=== PATIENT | male | born 1950 | race Caucasian/White ===

== ENCOUNTER 2016-11-01 12:04 | Emergency (ER) | payer MEDICARE, OTHER ==
[2016-11-01 12:17] VITALS: RESP 20
[2016-11-01] MEDS ORDERED: MORPHINE SULFATE 4 MG/ML SYRINGE IV STA (14:23)
[2016-11-01] MEDS ORDERED: SODIUM CHLORIDE 0.9% 500 ML IV STA (14:23)
[2016-11-01] MEDS ORDERED: SODIUM CHLORIDE 0.9% 1,000 ML IV STA ×2 (14:23)
--- NOTE | 2016-11-01 14:33 | ED ---
General Adult HPI - General Chief complaint: Abdominal Pain Stated complaint: Poss kidney stones Time Seen by Provider: 11/01/16 14:06 Source: patient, RN notes reviewed, old records reviewed Mode of arrival: ambulatory Limitations: no limitations - History of Present Illness Initial comments: This is a 66-year-old male ER for evaluation. The patient presents TF reversal without pain, severe abdominal pain left flank rating to groin, 10 days with the pain. Patient has history of kidney stones. Patient states pain is just like prior kidney stone. No blood in his urine, no fevers or nausea vomiting. No other complaints - Related Data Home Medications Medication Instructions Recorded Confirmed Insulin Aspart [NovoLOG] 5 unit SQ AC-TID 12/08/15 11/01/16 Insulin Glargine [Lantus] 70 unit SQ BID 12/08/15 11/01/16 metFORMIN HCL [Glucophage] 1,000 mg PO BID 12/08/15 11/01/16 Aspirin 81 mg PO DAILY 11/01/16 11/01/16 Crestor (Unknown Dose) 0.5 tab PO MOWEFR 11/01/16 11/01/16 Allergies Allergy/AdvReac Type Severity Reaction Status Date / Time simvastatin AdvReac JOINT PAIN Verified 11/01/16 14:20 Review of Systems ROS Statement: Those systems with pertinent positive or pertinent negative responses have been documented in the HPI. ROS Other: All systems not noted in ROS Statement are negative. Past Medical History Past Medical History: COPD, Diabetes Mellitus Additional Past Medical History / Comment(s): kidney stones History of Any Multi-Drug Resistant Organisms: None Reported Additional Past Surgical History / Comment(s): aortic valve Past Psychological History: No Psychological Hx Reported Smoking Status: Former smoker Past Alcohol Use History: None Reported Past Drug Use History: None Reported General Exam Limitations: no limitations General appearance: alert, in no apparent distress Head exam: Present: atraumatic, normocephalic, normal inspection Eye exam: Present: normal appearance, PERRL, EOMI. Absent: scleral icterus, conjunctival injection, periorbital swelling ENT exam: Present: normal exam, mucous membranes moist Neck exam: Present: normal inspection. Absent: tenderness, meningismus, lymphadenopathy Respiratory exam: Present: normal lung sounds bilaterally. Absent: respiratory distress, wheezes, rales, rhonchi, stridor Cardiovascular Exam: Present: regular rate, normal rhythm, normal heart sounds. Absent: systolic murmur, diastolic murmur, rubs, gallop, clicks GI/Abdominal exam: Present: soft, normal bowel sounds. Absent: distended, tenderness, guarding, rebound, rigid Extremities exam: Present: normal inspection, full ROM, normal capillary refill. Absent: tenderness, pedal edema, joint swelling, calf tenderness Back exam: Present: normal inspection Neurological exam: Present: alert, oriented X3, CN II-XII intact Psychiatric exam: Present: normal affect, normal mood Skin exam: Present: warm, dry, intact, normal color. Absent: rash Course Vital Signs 11/01/16 12:15 Temperature 98.4 F Pulse Rate 75 Respiratory 20 Rate Blood Pressure 128/57 O2 Sat by Pulse 97 Oximetry Medical Decision Making - Medical Decision Making 66 male here for evaluation of bowel pain. Patient has left kidney stone. No urinary tract infection. Mild renal insufficiency, increase fluid intake, patient was treated appropriately as an outpatient for medications - Lab Data Result diagrams: 11/01/16 14:35 11/01/16 14:35 Lab Results 11/01/16 11/01/16 11/01/16 Range/Units 14:35 14:35 14:35 WBC 10.1 (3.8-10.6) k/uL RBC 4.52 (4.30-5.90) m/uL Hgb 13.8 (13.0-17.5) gm/dL Hct 41.7 (39.0-53.0) % MCV 92.4 (80.0-100.0) fL MCH 30.5 (25.0-35.0) pg MCHC 33.1 (31.0-37.0) g/dL RDW 12.9 (11.5-15.5) % Plt Count 197 (150-450) k/uL Neutrophils % 79 % Lymphocytes % 12 % Monocytes % 7 % Eosinophils % 2 % Basophils % 0 % Neutrophils # 7.9 H (1.3-7.7) k/uL Lymphocytes # 1.2 (1.0-4.8) k/uL Monocytes # 0.7 (0-1.0) k/uL Eosinophils # 0.2 (0-0.7) k/uL Basophils # 0.0 (0-0.2) k/uL Sodium 141 (137-145) mmol/L Potassium 4.7 (3.5-5.1) mmol/L Chloride 100 (98-107) mmol/L Carbon Dioxide 26 (22-30) mmol/L Anion Gap 15 mmol/L BUN 24 H (9-20) mg/dL Creatinine 1.28 H (0.66-1.25) mg/dL Est GFR (MDRD) Af Amer >60 (>60 ml/min/1.73 sqM) Est GFR (MDRD) Non-Af 56 (>60 ml/min/1.73 sqM) Glucose 212 H (74-99) mg/dL Plasma Lactic Acid Jay (0.7-2.0) mmol/L Calcium 9.8 (8.4-10.2) mg/dL Total Bilirubin 0.6 (0.2-1.3) mg/dL AST 58 (17-59) U/L ALT 65 (21-72) U/L Alkaline Phosphatase 62 (38-126) U/L Total Creatine Kinase 91 (55-170) U/L CK-MB (CK-2) 2.1 (0.0-2.4) ng/mL CK-MB (CK-2) Rel Index 2.3 Troponin I <0.012 (0.000-0.034) ng/mL Total Protein 7.2 (6.3-8.2) g/dL Albumin 4.3 (3.5-5.0) g/dL Amylase 49 (30-110) U/L Lipase 431 H (23-300) U/L Urine Color Urine Appearance (Clear) Urine pH (5.0-8.0) Ur Specific [place] (1.001-1.035) Urine Protein (Negative) Urine Glucose (UA) (Negative) Urine Ketones (Negative) Urine Blood (Negative) Urine Nitrate (Negative) Urine Bilirubin (Negative) Urine Urobilinogen (<2.0) mg/dL Ur Leukocyte Esterase (Negative) 11/01/16 11/01/16 Range/Units 14:35 14:35 WBC (3.8-10.6) k/uL RBC (4.30-5.90) m/uL Hgb (13.0-17.5) gm/dL Hct (39.0-53.0) % MCV (80.0-100.0) fL MCH (25.0-35.0) pg MCHC (31.0-37.0) g/dL RDW (11.5-15.5) % Plt Count (150-450) k/uL Neutrophils % % Lymphocytes % % Monocytes % % Eosinophils % % Basophils % % Neutrophils # (1.3-7.7) k/uL Lymphocytes # (1.0-4.8) k/uL Monocytes # (0-1.0) k/uL Eosinophils # (0-0.7) k/uL Basophils # (0-0.2) k/uL Sodium (137-145) mmol/L Potassium (3.5-5.1) mmol/L Chloride (98-107) mmol/L Carbon Dioxide (22-30) mmol/L Anion Gap mmol/L BUN (9-20) mg/dL Creatinine (0.66-1.25) mg/dL Est GFR (MDRD) Af Amer (>60 ml/min/1.73 sqM) Est GFR (MDRD) Non-Af (>60 ml/min/1.73 sqM) Glucose (74-99) mg/dL Plasma Lactic Acid Jay 2.0 (0.7-2.0) mmol/L Calcium (8.4-10.2) mg/dL Total Bilirubin (0.2-1.3) mg/dL AST (17-59) U/L ALT (21-72) U/L Alkaline Phosphatase (38-126) U/L Total Creatine Kinase (55-170) U/L CK-MB (CK-2) (0.0-2.4) ng/mL CK-MB (CK-2) Rel Index Troponin I (0.000-0.034) ng/mL Total Protein (6.3-8.2) g/dL Albumin (3.5-5.0) g/dL Amylase (30-110) U/L Lipase (23-300) U/L Urine Color Yellow Urine Appearance Clear (Clear) Urine pH 6.5 (5.0-8.0) Ur Specific [place] 1.017 (1.001-1.035) Urine Protein Trace H (Negative) Urine Glucose (UA) 3+ H (Negative) Urine Ketones Negative (Negative) Urine Blood Negative (Negative) Urine Nitrate Negative (Negative) Urine Bilirubin Negative (Negative) Urine Urobilinogen 4.0 (<2.0) mg/dL Ur Leukocyte Esterase Negative (Negative) - Radiology Data Radiology results: report reviewed (CT abd pelvis negative for acute disease), image reviewed Disposition Clinical Impression: Right nephrolithiasis Disposition: HOME SELF-CARE Condition: Good Instructions: Kidney Stones (ED) Referrals: Nonstaff,Physician [Primary Care Provider] - 1-2 days
[2016-11-01 14:44] LABS: Appearance,Urine Clear (Clear); Bilirubin,Urine Negative (Negative); Glucose,Urine (UA) 3+ (Negative); Ketones,Urine Negative (Negative); Leukocyte Esterase,Urine Negative (Negative); Nitrite,Urine Negative (Negative); PH, Urine 6.5 (5.0-8.0); Protein,Urine Trace (Negative); Specific Gravity,Urine 1.017 (1.001-1.035); UA Billing (MACRO vs. MICRO) CHEM
[2016-11-01 14:45] LABS: Basophils % (A) 0 %; CH 31.6; CHCM 34.4; Eosinophils # (A) 0.2 k/uL (0-0.7); Eosinophils % (A) 2 %; HCT 41.7 % (39.0-53.0); HDW 2.93; HGB 13.8 gm/dL (13.0-17.5); Luc # (Auto) 0.12; Luc % (Auto) 1; Lymphocytes # (A) 1.2 k/uL (1.0-4.8); Lymphocytes % (A) 12 %; MCH 30.5 pg (25.0-35.0); MCHC 33.1 g/dL (31.0-37.0); MCV 92.4 fL (80.0-100.0); Mean Platelet Volume 7.3; Monocytes # (A) 0.7 k/uL (0-1.0); Monocytes % (A) 7 %; Neutrophils # (A) 7.9 k/uL (1.3-7.7); Neutrophils % (A) 79 %; RBC 4.52 m/uL (4.30-5.90); RDW 12.9 % (11.5-15.5); WBC 10.1 k/uL (3.8-10.6); WBC (Perox) 10.23
[2016-11-01 14:53] LABS: ALT 65 U/L (21-72); AST 58 U/L (17-59); Alkaline Phosphatase 62 U/L (38-126); Amylase 49 U/L (30-110); Anion Gap 15 mmol/L; Blood Urea Nitrogen 24 mg/dL (9-20); Calcium 9.8 mg/dL (8.4-10.2); Carbon Dioxide 26 mmol/L (22-30); Chloride 100 mmol/L (98-107); Glucose 212 mg/dL (74-99); Non-African American GFR(MDRD) 56 (>60 ml/min/1.73 sqM); Potassium 4.7 mmol/L (3.5-5.1); Sodium 141 mmol/L (137-145); Total Bilirubin 0.6 mg/dL (0.2-1.3); Total Protein 7.2 g/dL (6.3-8.2)
[2016-11-01 14:55] LABS: Creatine Kinase 91 U/L (55-170)
[2016-11-01 15:08] LABS: Creatine Kinase MB 2.1 ng/mL (0.0-2.4); Troponin I <0.012 ng/mL (0.000-0.034)
--- NOTE | 2016-11-01 15:44 | CT ---
EXAMINATION TYPE: CT abdomen pelvis wo con DATE OF EXAM: 11/01/2016 3:27 PM COMPARISON: Prior CT dated 08 December 2015 HISTORY: Left flank pain. CT DLP: 1251.00 mGycm Automated exposure control for dose reduction was used. TECHNIQUE: Helical acquisition of images from the lung bases through the pelvis. FINDINGS: LUNG BASES: There is some airspace disease or atelectatic lung at the right lung base greater than le ft. Patient is post median sternotomy. There are coronary artery calcifications. Pulmonary artery is dilated. AORTA: Ascending aorta measures approximately 4.3 cm at the level of the root LIVER/GB: Liver shows low attenuation likely due to fatty infiltration. PANCREAS: There is likely a duodenal diverticulum at the second portion of duodenum. Pancreas is unre markable. SPLEEN: No significant abnormality is seen. ADRENALS: No significant abnormality is seen. KIDNEYS: There is left-sided hydronephrosis. High dense spherical lesion present at the upper to midp ole on the left measures approximately 2.6 cm which shows elevated Hounsfield units, there is likely a cortical cyst anteriorly at the mid pole of the right kidney measuring 3.8 cm. Proximal left ureter al calculus measures approximately 6 to 7 mm. REPRODUCTIVE ORGANS: Prostate is enlarged and shows associated calcifications. URINARY BLADDER: Urinary bladder shows wall thickening possibly due to chronic outlet obstruction. D istal left ureteral calculus is no longer evident. BOWEL: No significant abnormality is seen. Anterior abdominal wall hernia at the umbilical region co ntains fat. Diverticular changes extensive along the sigmoid colon is redundant. The appendix is norm al. FREE AIR: No Free Air is visible. ASCITES: None visible. PELVIC ADENOPATHY: None visualized. RETROPERITONEAL ADENOPATHY: No Retroperitoneal Adenopathy visible. OSSEOUS STRUCTURES: No significant abnormality is seen. Lack of intravenous contrast could compromise sensitivity. IMPRESSION: PROXIMAL LEFT URETERAL CALCULUS WITH HYDRONEPHROSIS. THERE MAY BE HEMORRHAGIC CYST, THE LEFT RENAL LE CORY HAS INCREASED IN SIZE COMPARED TO PREVIOUS EXAM AND SHOWS A SOMEWHAT HIGHER ATTENUATION THAN ON PRIOR, ADDITIONAL FOLLOW-UP IS RECOMMENDED. CORONARY ARTERY DISEASE. ADDITIONAL FINDINGS ABOVE. INTER NILS CHANGE IS DESCRIBED ABOVE. EXTENSIVE DIVERTICULOSIS. NONCONTRAST EXAM.
[2016-11-01] MEDS ORDERED: KETOROLAC 30 MG/ML 1 ML VIAL IVP STA (15:49)
[2016-11-01 16:08] VITALS: BP 152/67; PULSE 59; TEMP 97.9
== END 2016-11-01 16:10 | disposition home or self-care (01) ==
LOC: EC 12:04
DX: N13.2 Hydronephrosis with renal and ureteral calculous obstruction (principal); E11.9 Type 2 diabetes mellitus without complications; Z79.82 Long term (current) use of aspirin; Z79.4 Long term (current) use of insulin; Z79.84 Long term (current) use of oral hypoglycemic drugs; Z79.899 Other long term (current) drug therapy; Z87.891 Personal history of nicotine dependence
CPT/HCPCS: 99284; 96374; 96375; 96361; 36415; 80053; 82150; 82550; 82553; 83605; 83690; 84484; 85025; 81003; 87086; 74176; J2270; J1885

== ENCOUNTER 2019-04-01 18:31 | Emergency (ER) | payer MEDICARE, OTHER ==
[2019-04-01] MEDS ORDERED: SODIUM CHLORIDE 0.9% 500 ML 500 ML IV STA (19:06)
[2019-04-01 19:38] LABS: Basophils % (A) 0 %; Eosinophils # (A) 0.2 k/uL (0-0.7); Eosinophils % (A) 1 %; HCT 42.5 % (39.0-53.0); HGB 14.4 gm/dL (13.0-17.5); Lymphocytes # (A) 1.1 k/uL (1.0-4.8); Lymphocytes % (A) 9 %; MCH 30.8 pg (25.0-35.0); MCHC 33.8 g/dL (31.0-37.0); MCV 91.1 fL (80.0-100.0); Mean Platelet Volume 6.5; Monocytes # (A) 0.7 k/uL (0-1.0); Monocytes % (A) 6 %; Neutrophils # (A) 10.3 k/uL (1.3-7.7); Neutrophils % (A) 82 %; Platelet Count 163 k/uL (150-450); RBC 4.66 m/uL (4.30-5.90); RDW 13.8 % (11.5-15.5); WBC 12.6 k/uL (3.8-10.6)
[2019-04-01 19:52] LABS: Albumin 4.2 g/dL (3.5-5.0); Calcium 9.3 mg/dL (8.4-10.2); Potassium 4.7 mmol/L (3.5-5.1); Total Bilirubin 0.7 mg/dL (0.2-1.3); Total Protein 6.9 g/dL (6.3-8.2)
[2019-04-01 20:34] LABS: Appearance,Urine Clear (Clear); Bilirubin,Urine Negative (Negative); Blood,Urine Negative (Negative); Color,Urine Yellow; Glucose,Urine (UA) Negative (Negative); Ketones,Urine Negative (Negative); Leukocyte Esterase,Urine Negative (Negative); Nitrite,Urine Negative (Negative); PH, Urine 6.5 (5.0-8.0); Protein,Urine Negative (Negative); Specific Gravity,Urine 1.023 (1.001-1.035)
--- NOTE | 2019-04-01 20:36 | ED ---
General Adult HPI - General Chief complaint: Abdominal Pain Stated complaint: left flank pain Time Seen by Provider: 04/01/19 19:06 Source: patient, RN notes reviewed, old records reviewed Mode of arrival: ambulatory Limitations: no limitations - History of Present Illness Initial comments: 68-year-old male patient passed history of COPD, type 2 diabetes, renal calculi, hyperlipidemia, hypertension presents to ED with left flank pain for 4 days. Patient has had this feels similar to kidney stones he has had in the past. Denies any other complaints today. Denies any abdominal pain, nausea vomiting diarrhea, chest pain shortness of breath. Denies all other complaints. Systemic: Pt denies fatigue, fever/chills, rash. Pt denies weakness, night swe ats, weight loss. Neuro: Pt denies headache, visual disturbances, syncope or pre-syncope. HEENT: Pt denies ocular discharge or irritation, otalgia, rhinorrhea, pharyngitis or notable lymphadenopathy. Cardiopulmonary: Pt denies chest pain, SOB, heart palpitations, dyspnea on exertion. Abdominal/GI: Pt denies abdominal pain, n/v/d. : Pt denies dysuria, burning w/ urination, frequency/urgency. Denies new onset urinary or bowel incontinence. MSK: Pt denies myalgia, loss of strength or function in extremities. Neuro: Pt denies new onset weakness, paresthesias. - Related Data Home Medications Medication Instructions Recorded Confirmed INSULIN ASPART (NovoLOG) [NovoLOG] 5 unit SQ AC-TID 12/08/15 11/01/16 Insulin Glargine [Lantus] 70 unit SQ BID 12/08/15 11/01/16 metFORMIN HCL [Glucophage] 1,000 mg PO BID 12/08/15 11/01/16 Aspirin 81 mg PO DAILY 11/01/16 11/01/16 Crestor (Unknown Dose) 0.5 tab PO MOWEFR 11/01/16 11/01/16 Previous Rx's Medication Instructions Recorded HYDROcodone/APAP 5-325MG [[place] 1 tab PO Q6HR PRN #30 tab 11/01/16 5-325] Naproxen [Naprosyn] 500 mg PO Q12HR #60 tab 11/01/16 Tamsulosin [Flomax] 0.4 mg PO DAILY #30 cap 01/09/17 Tamsulosin [Flomax] 0.4 mg PO DAILY #10 cap 04/01/19 Allergies Allergy/AdvReac Type Severity Reaction Status Date / Time simvastatin AdvReac JOINT PAIN Verified 04/01/19 19:01 Review of Systems ROS Statement: Those systems with pertinent positive or pertinent negative responses have been documented in the HPI. ROS Other: All systems not noted in ROS Statement are negative. Past Medical History Past Medical History: COPD, Diabetes Mellitus, Hyperlipidemia Additional Past Medical History / Comment(s): kidney stones, agent orange exposure History of Any Multi-Drug Resistant Organisms: None Reported Past Surgical History: Coronary Bypass/CABG Additional Past Surgical History / Comment(s): aortic valve Past Psychological History: No Psychological Hx Reported Smoking Status: Former smoker Past Alcohol Use History: None Reported Past Drug Use History: None Reported General Exam - General Exam Comments Initial Comments: Constitutional: NAD, AOX3, Pt has pleasant affect. HEENT: NC/AT, trachea midline, neck supple, no lymphadenopathy. Posterior pharynx non erythematous, without exudates. External ears appear normal, without discharge. Mucous membranes moist. Eyes PERRLA, EOM intact. There is no scleral icterus. No pallor noted. Cardiopulmonary: RRR, no murmurs, rubs or gallops, no JVD noted. Lungs CTAB in anterior and posterior suresh. No peripheral edema. Abdominal exam: Abdomen soft and non-distended. Abdomen non-tender to palpation in all 4 quadrants. Bowel sounds active in LLQ. No hepatosplenomegaly. No ecchymosis Neuro: CN II-XII grossly intact. No nuchal rigidity. No raccon eyes, no magana sign, no hemotympanum. No cervical spinal tenderness. MSK: No posterior calf tenderness bilaterally, homans sign negative bilaterally. Posterior tibialis and radial pulse +2 bilaterally. Sensation intact in upper and lower extremities. Full active ROM in upper and lower extremities, 5/5 streg nth. Limitations: no limitations Course Vital Signs 04/01/19 04/01/19 18:58 21:00 Temperature 99.0 F 98.2 F Pulse Rate 82 67 Respiratory 18 20 Rate Blood Pressure 148/69 152/71 O2 Sat by Pulse 90 L 94 L Oximetry Medical Decision Making - Medical Decision Making Constitutional: NAD, AOX3, Pt has pleasant affect. HEENT: NC/AT, trachea midline, neck supple, no lymphadenopathy. Posterior pharynx non erythematous, without exudates. External ears appear normal, without discharge. Mucous membranes moist. Eyes PERRLA, EOM intact. There is no scleral icterus. No pallor noted. Cardiopulmonary: RRR, no murmurs, rubs or gallops, no JVD noted. Lungs CTAB in anterior and posterior suresh. No peripheral edema. Abdominal exam: Abdomen soft and non-distended. Abdomen non-tender to palpation in all 4 quadrants. Bowel sounds active in LLQ. No hepatosplenomegaly. No ecchymosis mild left CVA tenderness, no right CVA tenderness. Neuro: CN II-XII grossly intact. No nuchal rigidity. No raccon eyes, no magana sign, no hemotympanum. No cervical spinal tenderness. MSK: No posterior calf tenderness bilaterally, homans sign negative bilaterally. Posterior tibialis and radial pulse +2 bilaterally. Sensation intact in upper and lower extremities. Full active ROM in upper and lower extremities, 5/5 stregnth. - Lab Data Result diagrams: 04/01/19 19:30 04/01/19 19:30 Lab Results 04/01/19 04/01/19 04/01/19 Range/Units 19:30 19:30 19:30 WBC 12.6 H (3.8-10.6) k/uL RBC 4.66 (4.30-5.90) m/uL Hgb 14.4 (13.0-17.5) gm/dL Hct 42.5 (39.0-53.0) % MCV 91.1 (80.0-100.0) fL MCH 30.8 (25.0-35.0) pg MCHC 33.8 (31.0-37.0) g/dL RDW 13.8 (11.5-15.5) % Plt Count 163 (150-450) k/uL Neutrophils % 82 % Lymphocytes % 9 % Monocytes % 6 % Eosinophils % 1 % Basophils % 0 % Neutrophils # 10.3 H (1.3-7.7) k/uL Lymphocytes # 1.1 (1.0-4.8) k/uL Monocytes # 0.7 (0-1.0) k/uL Eosinophils # 0.2 (0-0.7) k/uL Basophils # 0.0 (0-0.2) k/uL Sodium 140 (137-145) mmol/L Potassium 4.7 (3.5-5.1) mmol/L Chloride 106 (98-107) mmol/L Carbon Dioxide 23 (22-30) mmol/L Anion Gap 11 mmol/L BUN 31 H (9-20) mg/dL Creatinine 1.58 H (0.66-1.25) mg/dL Est GFR (CKD-EPI)AfAm 51 (>60 ml/min/1.73 sqM) Est GFR (CKD-EPI)NonAf 44 (>60 ml/min/1.73 sqM) Glucose 151 H (74-99) mg/dL Plasma Lactic Acid Jay 1.1 (0.7-2.0) mmol/L Calcium 9.3 (8.4-10.2) mg/dL Total Bilirubin 0.7 (0.2-1.3) mg/dL AST 22 (17-59) U/L ALT 31 (21-72) U/L Alkaline Phosphatase 55 (38-126) U/L Total Protein 6.9 (6.3-8.2) g/dL Albumin 4.2 (3.5-5.0) g/dL Lipase 49 (23-300) U/L Urine Color Urine Appearance (Clear) Urine pH (5.0-8.0) Ur Specific [place] (1.001-1.035) Urine Protein (Negative) Urine Glucose (UA) (Negative) Urine Ketones (Negative) Urine Blood (Negative) Urine Nitrite (Negative) Urine Bilirubin (Negative) Urine Urobilinogen (<2.0) mg/dL Ur Leukocyte Esterase (Negative) 04/01/19 Range/Units 20:20 WBC (3.8-10.6) k/uL RBC (4.30-5.90) m/uL Hgb (13.0-17.5) gm/dL Hct (39.0-53.0) % MCV (80.0-100.0) fL MCH (25.0-35.0) pg MCHC (31.0-37.0) g/dL RDW (11.5-15.5) % Plt Count (150-450) k/uL Neutrophils % % Lymphocytes % % Monocytes % % Eosinophils % % Basophils % % Neutrophils # (1.3-7.7) k/uL Lymphocytes # (1.0-4.8) k/uL Monocytes # (0-1.0) k/uL Eosinophils # (0-0.7) k/uL Basophils # (0-0.2) k/uL Sodium (137-145) mmol/L Potassium (3.5-5.1) mmol/L Chloride (98-107) mmol/L Carbon Dioxide (22-30) mmol/L Anion Gap mmol/L BUN (9-20) mg/dL Creatinine (0.66-1.25) mg/dL Est GFR (CKD-EPI)AfAm (>60 ml/min/1.73 sqM) Est GFR (CKD-EPI)NonAf (>60 ml/min/1.73 sqM) Glucose (74-99) mg/dL Plasma Lactic Acid Jay (0.7-2.0) mmol/L Calcium (8.4-10.2) mg/dL Total Bilirubin (0.2-1.3) mg/dL AST (17-59) U/L ALT (21-72) U/L Alkaline Phosphatase (38-126) U/L Total Protein (6.3-8.2) g/dL Albumin (3.5-5.0) g/dL Lipase (23-300) U/L Urine Color Yellow Urine Appearance Clear (Clear) Urine pH 6.5 (5.0-8.0) Ur Specific [place] 1.023 (1.001-1.035) Urine Protein Negative (Negative) Urine Glucose (UA) Negative (Negative) Urine Ketones Negative (Negative) Urine Blood Negative (Negative) Urine Nitrite Negative (Negative) Urine Bilirubin Negative (Negative) Urine Urobilinogen 6.0 (<2.0) mg/dL Ur Leukocyte Esterase Negative (Negative) Disposition Clinical Impression: Ureteral calculi Disposition: HOME SELF-CARE Condition: Stable Instructions (If sedation given, give patient instructions): Kidney Stones (ED) Additional Instructions: Patient to adhere to previously discussed treatment plan and will take medication(s) as directed. Patient to follow up with PCP in 1-2 days. Patient to return to ED if symptoms do not improve. Take medication as directed. Follow-up with primary care provider and urology consult 1-2 days. Prescriptions: Tamsulosin [Flomax] 0.4 mg PO DAILY #10 cap Is patient prescribed a controlled substance at d/c from ED?: No Referrals: Nonstaff,Physician [Primary Care Provider] - 1-2 days Erlin Mendiola MD [STAFF PHYSICIAN] - 1-2 days
--- NOTE | 2019-04-01 20:59 | CT ---
EXAMINATION TYPE: CT abdomen pelvis wo con DATE OF EXAM: 04/01/2019 COMPARISON: 11/01/2016 HISTORY: left flank pain. hx of stones. CT DLP: 1531 mGycm Automated exposure control for dose reduction was used. TECHNIQUE: Helical acquisition of images was performed from the lung bases through the pelvis. FINDINGS: There is some atelectasis at the lung bases. This is more on the right side. There is no pericardial effusion. There is coronary artery calcification. There is no pleural effusion. Liver shows no focal defect. Stomach appears intact. Spleen appears normal. There is no pancreatic ma ss. Gallbladder appears normal. Bile ducts are not dilated. There is no adrenal mass. There are cortical cysts upper pole left kidney that measure 2 cm. There is 3 mm calculus lower pole left kidney. There is 3 mm calculus upper pole left kidney. There is 1 mm c alculus anterior right kidney. There is 1 mm calculi in the lower pole right kidney. There is mild le ft-sided perinephric edema. There is mild left-sided hydronephrosis and hydroureter. There is 6 mm ca lculus at the left ureterovesical junction. There is prostatic calcification. There is no inguinal hernia. There are multiple diverticula of the sigmoid colon. There is no sign of diverticulitis. Appendix appears normal. There is no sign of a bowel obstruction. There is no mesent [place] edema. There is no ascites or free air. Lumbar vertebra have normal spacing and alignment. Bony pelvis is intact. IMPRESSION: Multiple bilateral renal calculi. There is obstructing calculus at the left ureterovesical junction. Severity of obstruction and hydron ephrosis is similar to the old CT scan of 11/01/2016. The old CT scan shows obstructing calculus in the more proximal left ureter. Calculi in the kidneys are increased in size and number compared to old e xam. There is some atelectasis at the right lung base that is improved slightly compared to last exam.
[2019-04-01 21:04] VITALS: TEMP 98.2
[2019-04-01] MEDS ORDERED: ACET/COD 300 MG/30 MG STARTER PACK 6 TAB BTL PO STA (21:30)
[2019-04-01] MEDS ORDERED: MORPHINE SULFATE 4 MG/ML SYRINGE IV STA (21:41)
--- NOTE | 2019-04-01 21:42 | ED ---
Medical Decision Making - Lab Data Result diagrams: 04/01/19 19:30 04/01/19 19:30 <Navi Maciel - Last Filed: 04/01/19 21:41> - Lab Data Result diagrams: 04/01/19 19:30 04/01/19 19:30 <Nelli Shaw - Last Filed: 04/02/19 01:57> - Medical Decision Making 68-year-old male patient passed history of COPD, type 2 diabetes, renal calculi, hyperlipidemia, hypertension presents to ED with left flank pain for 4 days. Patient has had this feels similar to kidney stones he has had in the past. Denies any other complaints today. Denies any abdominal pain, nausea vomiting diarrhea, chest pain shortness of breath. Denies all other complaints. Patient vital signs stable, afebrile. Physical exam displayed left flank pain. Laboratory investigations revealed leukocytosis of 12.6. Patient has mild increase of creatinine 1.58. UA negative. CT abdomen and pelvis with multiple bilateral renal colic right. There is an obstructing calculi at the left ureterovesicular junction. Patient discharged with Flomax and urology follow- up. (Navi Maciel) I was available for consultation in the emergency department. The history and physical exam were done by the midlevel provider. I was consulted for this patient's care. I reviewed the case with the midlevel provider and based on their presentation of the patient, I agree with the assessment, medical decision making and plan of care as documented. Chart was dictated using [employer] dictation software. Attempts were made to correct any dictation errors however some typographical errors may persist. (Nelli Shaw) - Lab Data Lab Results 04/01/19 04/01/19 04/01/19 Range/Units 19:30 19:30 19:30 WBC 12.6 H (3.8-10.6) k/uL RBC 4.66 (4.30-5.90) m/uL Hgb 14.4 (13.0-17.5) gm/dL Hct 42.5 (39.0-53.0) % MCV 91.1 (80.0-100.0) fL MCH 30.8 (25.0-35.0) pg MCHC 33.8 (31.0-37.0) g/dL RDW 13.8 (11.5-15.5) % Plt Count 163 (150-450) k/uL Neutrophils % 82 % Lymphocytes % 9 % Monocytes % 6 % Eosinophils % 1 % Basophils % 0 % Neutrophils # 10.3 H (1.3-7.7) k/uL Lymphocytes # 1.1 (1.0-4.8) k/uL Monocytes # 0.7 (0-1.0) k/uL Eosinophils # 0.2 (0-0.7) k/uL Basophils # 0.0 (0-0.2) k/uL Sodium 140 (137-145) mmol/L Potassium 4.7 (3.5-5.1) mmol/L Chloride 106 (98-107) mmol/L Carbon Dioxide 23 (22-30) mmol/L Anion Gap 11 mmol/L BUN 31 H (9-20) mg/dL Creatinine 1.58 H (0.66-1.25) mg/dL Est GFR (CKD-EPI)AfAm 51 (>60 ml/min/1.73 sqM) Est GFR (CKD-EPI)NonAf 44 (>60 ml/min/1.73 sqM) Glucose 151 H (74-99) mg/dL Plasma Lactic Acid Jay 1.1 (0.7-2.0) mmol/L Calcium 9.3 (8.4-10.2) mg/dL Total Bilirubin 0.7 (0.2-1.3) mg/dL AST 22 (17-59) U/L ALT 31 (21-72) U/L Alkaline Phosphatase 55 (38-126) U/L Total Protein 6.9 (6.3-8.2) g/dL Albumin 4.2 (3.5-5.0) g/dL Lipase 49 (23-300) U/L Urine Color Urine Appearance (Clear) Urine pH (5.0-8.0) Ur Specific [place] (1.001-1.035) Urine Protein (Negative) Urine Glucose (UA) (Negative) Urine Ketones (Negative) Urine Blood (Negative) Urine Nitrite (Negative) Urine Bilirubin (Negative) Urine Urobilinogen (<2.0) mg/dL Ur Leukocyte Esterase (Negative) 04/01/19 Range/Units 20:20 WBC (3.8-10.6) k/uL RBC (4.30-5.90) m/uL Hgb (13.0-17.5) gm/dL Hct (39.0-53.0) % MCV (80.0-100.0) fL MCH (25.0-35.0) pg MCHC (31.0-37.0) g/dL RDW (11.5-15.5) % Plt Count (150-450) k/uL Neutrophils % % Lymphocytes % % Monocytes % % Eosinophils % % Basophils % % Neutrophils # (1.3-7.7) k/uL Lymphocytes # (1.0-4.8) k/uL Monocytes # (0-1.0) k/uL Eosinophils # (0-0.7) k/uL Basophils # (0-0.2) k/uL Sodium (137-145) mmol/L Potassium (3.5-5.1) mmol/L Chloride (98-107) mmol/L Carbon Dioxide (22-30) mmol/L Anion Gap mmol/L BUN (9-20) mg/dL Creatinine (0.66-1.25) mg/dL Est GFR (CKD-EPI)AfAm (>60 ml/min/1.73 sqM) Est GFR (CKD-EPI)NonAf (>60 ml/min/1.73 sqM) Glucose (74-99) mg/dL Plasma Lactic Acid Jay (0.7-2.0) mmol/L Calcium (8.4-10.2) mg/dL Total Bilirubin (0.2-1.3) mg/dL AST (17-59) U/L ALT (21-72) U/L Alkaline Phosphatase (38-126) U/L Total Protein (6.3-8.2) g/dL Albumin (3.5-5.0) g/dL Lipase (23-300) U/L Urine Color Yellow Urine Appearance Clear (Clear) Urine pH 6.5 (5.0-8.0) Ur Specific [place] 1.023 (1.001-1.035) Urine Protein Negative (Negative) Urine Glucose (UA) Negative (Negative) Urine Ketones Negative (Negative) Urine Blood Negative (Negative) Urine Nitrite Negative (Negative) Urine Bilirubin Negative (Negative) Urine Urobilinogen 6.0 (<2.0) mg/dL Ur Leukocyte Esterase Negative (Negative) Disposition Is patient prescribed a controlled substance at d/c from ED?: No <Navi Maciel - Last Filed: 04/01/19 21:41> <Nelli Shaw - Last Filed: 04/02/19 01:57> Clinical Impression: Ureteral calculi Disposition: HOME SELF-CARE Condition: Stable Instructions (If sedation given, give patient instructions): Kidney Stones (ED) Additional Instructions: Patient to adhere to previously discussed treatment plan and will take medication(s) as directed. Patient to follow up with PCP in 1-2 days. Patient to return to ED if symptoms do not improve. Take medication as directed. Follow-up with primary care provider and urology consult 1-2 days. Prescriptions: Tamsulosin [Flomax] 0.4 mg PO DAILY #10 cap Referrals: Erlin Mendiola MD [STAFF PHYSICIAN] - 1-2 days Nonstaff,Physician [Primary Care Provider] - 1-2 days
[2019-04-01] MEDS ORDERED: MORPHINE SULFATE 2 MG/ML SYRINGE IM STA (21:58)
[2019-04-01 22:09] VITALS: BP 148/87; PULSE 78; RESP 18
== END 2019-04-01 22:08 | disposition home or self-care (01) ==
LOC: EC 18:31
DX: N20.2 Calculus of kidney with calculus of ureter (principal); E11.9 Type 2 diabetes mellitus without complications; E78.5 Hyperlipidemia, unspecified; Z79.82 Long term (current) use of aspirin; Z79.4 Long term (current) use of insulin; Z79.899 Other long term (current) drug therapy; Z88.8 Allergy status to other drugs, medicaments and biological substances; Z87.891 Personal history of nicotine dependence; Z95.1 Presence of aortocoronary bypass graft
CPT/HCPCS: 36415; 80053; 83605; 83690; 85025; 81003; 74176; 99284; 96360; 96372; J2270

== ENCOUNTER 2023-03-02 11:18 | Inpatient (IN) | payer OTHER, MEDICARE ==
--- NOTE | 2023-03-02 11:38 | ED ---
General Adult HPI - General Chief complaint: Neuro Symptoms/Deficit Stated complaint: DR Abdiel Jacques last week Time Seen by Provider: 03/02/23 11:32 Source: patient, RN notes reviewed, old records reviewed Mode of arrival: ambulatory Limitations: no limitations - History of Present Illness Initial comments: 72-year-old male presenting with right-sided facial droop, slurred speech symptoms began one week ago. Patient states he also has some numbness to the right arm. Patient did not seek medical advice at this time no chest pain. No fever. - Related Data Home Medications Medication Instructions Recorded Confirmed INSULIN ASPART (NovoLOG) [NovoLOG] 7 unit SQ AC-TID 12/08/15 03/02/23 Insulin Glargine [Lantus] 75 unit SQ BID 12/08/15 03/02/23 Aspirin 81 mg PO DAILY 11/01/16 03/02/23 Albuterol Sulfate [Albuterol 2 puff PO RT-QID PRN 03/02/23 03/02/23 Sulfate Hfa] Fluticasone Propion/Salmeterol 1 puff INHALATION DIRECTED 03/02/23 03/02/23 [Wixela 100-50 Inhub] Loratadine [Claritin] 10 mg PO DAILY PRN 03/02/23 03/02/23 Losartan Potassium [Cozaar] 12.5 mg PO DAILY 03/02/23 03/02/23 Rosuvastatin [Crestor] 10 mg PO HS 03/02/23 03/02/23 metFORMIN HCL ER [Glucophage XR] 1,000 mg PO BID-W/MEALS 03/02/23 03/02/23 Allergies Allergy/AdvReac Type Severity Reaction Status Date / Time simvastatin AdvReac JOINT PAIN Verified 03/02/23 12:42 Review of Systems ROS Statement: Those systems with pertinent positive or pertinent negative responses have been documented in the HPI. ROS Other: All systems not noted in ROS Statement are negative. Past Medical History Past Medical History: COPD, Diabetes Mellitus, Hyperlipidemia Additional Past Medical History / Comment(s): kidney stones, agent orange exposure, polio History of Any Multi-Drug Resistant Organisms: None Reported Past Surgical History: Coronary Bypass/CABG Additional Past Surgical History / Comment(s): aortic valve Past Psychological History: PTSD Smoking Status: Former smoker Past Alcohol Use History: Occasional Past Drug Use History: None Reported General Exam Limitations: no limitations General appearance: alert, in no apparent distress Head exam: Present: atraumatic, normocephalic Eye exam: Present: normal appearance, PERRL Neck exam: Present: normal inspection Respiratory exam: Present: normal lung sounds bilaterally, decreased breath sounds. Absent: respiratory distress Cardiovascular Exam: Present: regular rate, normal rhythm GI/Abdominal exam: Present: soft, distended. Absent: tenderness Extremities exam: Present: normal capillary refill Neurological exam: Present: alert, oriented X3, motor sensory deficit (Right facial droop, mild expressive aphasia, and left upper extremity ataxia, NIH of 4) Psychiatric exam: Present: normal affect, normal mood Skin exam: Present: warm, dry, intact. Absent: cyanosis, diaphoretic Course Vital Signs 03/02/23 03/02/23 11:22 13:11 Temperature 97.9 F Pulse Rate 77 71 Respiratory 16 20 Rate Blood Pressure 146/70 140/63 O2 Sat by Pulse 90 L 92 L Oximetry EKG Findings - EKG Comments: EKG Findings:: EKG: Atrial fibrillation rate of 81, QRS duration 97, QTC 405, no ST segment elevation, tremor artifact significantly limiting the assessment. - EKG Results: EKG: interpreted by KELSEY Medical Decision Making - Medical Decision Making Was pt. sent in by a medical professional or institution (HARDIK Carrillo, TAKE OFF WORKER, urgent care, hospital, or [facility]...) When possible be specific @ -No Did you speak to anyone other than the patient for history (EMS, parent, family, police, friend...)? What history was obtained from this source @ -No Did you review nursing and triage notes (agree or disagree)? Why? @ -I reviewed and agree with nursing and triage notes Were old charts reviewed (outside hosp., previous admission, EMS record, old EKG, old radiological studies, urgent care reports/EKG's, [facility] records)? Report findings @ -No old charts were reviewed Differential Diagnosis (chest pain, altered mental status, abdominal pain women, abdominal pain men, vaginal bleeding, weakness, fever, dyspnea, syncope, headache, dizziness, GI bleed, back pain, seizure, CVA, palpatations, mental health, musculoskeletal)? @ Differential CVA Ischemic stroke, hemorrhagic stroke, brain tumor, atypical migraine, Wernicke's encephalopathy, seizure, multiple sclerosis, meningitis, encephalitis, h ypoglycemia, Guillain-Blas, electrolytes disturbance, myasthenia gravis.... This is not meant to be an all-inclusive list EKG interpreted by me (3pts min.). @ -As above X-rays interpreted by me (1pt min.). @ X-ray reviewed, questionable left lower lobe infiltrate CT interpreted by me (1pt min.). @ CT brain negative for intracranial hemorrhage or mass effect U/S interpreted by me (1pt. min.). @ -None done What testing was considered but not performed or refused? (CT, X-rays, U/S, labs)? Why? @ -None What meds were considered but not given or refused? Why? @ -None Did you discuss the management of the patient with other professionals (professionals i.e. , PA, TAKE OFF WORKER, lab, RT, psych nurse, medical social consultant, packing machine operator, teacher, certification officer, supervisor case loading)? Give summary @ [facility] Was smoking cessation discussed for >3mins.? @ -No Was critical care preformed (if so, how long)? @ -No Were there social determinants of health that impacted care today? How? (Homelessness, low income, unemployed, alcoholism, drug addiction, t ransportation, low edu. Level, literacy, decrease access to med. care, halfway, rehab)? @ -No Was there de-escalation of care discussed even if they declined (Discuss DNR or withdrawal of care, Hospice)? DNR status @ -No What co-morbidities impacted this encounter? (DM, HTN, Smoking, COPD, CAD, Cancer, CVA, ARF, Chemo, Hep., AIDS, mental health diagnosis, sleep apnea, morbid obesity)? @ -Diabetes Was patient admitted / discharged? Hospital course, mention meds given and route, prescriptions, significant lab abnormalities, going to OR and other pertinent info. @ -72-year-old male with facial droop, slurred speech, symptoms have been present for the past one week. On exam the patient has a mild dysarthria mild right-sided facial droop and left upper extremity ataxia. Patient received CT imaging which was negative. He will require further workup for CVA. He will be admitted to internal medicine with neurology on consult. Additional studies including MRI, echo and carotid ultrasound have been ordered. Undiagnosed new problem with uncertain prognosis? @ -No Drug Therapy requiring intensive monitoring for toxicity (Heparin, Nitro, Insulin, Cardizem)? @ -No Were any procedures done? @ -No Diagnosis/symptom? @ CVA Acute, or Chronic, or Acute on Chronic? @ Acute Uncomplicated (without systemic symptoms) or Complicated (systemic symptoms)? @ Complicated Side effects of treatment? @ -No Exacerbation, Progression, or Severe Exacerbation? @ -No Poses a threat to life or bodily function? How? (Chest pain, [place], [place], pneumonia, PE, COPD, DKA, ARF, appy, cholecystitis, CVA, Diverticulitis, Homicidal, Suicidal, threat to staff... and all critical care pts) @ Yes, CVA - Lab Data Result diagrams: 03/02/23 11:50 03/02/23 12:50 Lab Results 03/02/23 03/02/23 03/02/23 Range/Units 11:50 11:50 12:50 WBC 7.9 (3.8-10.6) k/uL RBC 5.24 (4.30-5.90) m/uL Hgb 16.2 (13.0-17.5) gm/dL Hct 49.5 (39.0-53.0) % MCV 94.5 (80.0-100.0) fL MCH 30.9 (25.0-35.0) pg MCHC 32.7 (31.0-37.0) g/dL RDW 12.8 (11.5-15.5) % Plt Count 151 (150-450) k/uL MPV 7.3 Neutrophils % 76 % Lymphocytes % 15 % Monocytes % 5 % Eosinophils % 3 % Basophils % 0 % Neutrophils # 5.9 (1.3-7.7) k/uL Lymphocytes # 1.2 (1.0-4.8) k/uL Monocytes # 0.4 (0-1.0) k/uL Eosinophils # 0.3 (0-0.7) k/uL Basophils # 0.0 (0-0.2) k/uL PT 10.2 (9.0-12.0) sec INR 1.0 (<1.2) APTT 22.1 (22.0-30.0) sec Sodium (137-145) mmol/L Potassium (3.5-5.1) mmol/L Chloride (98-107) mmol/L Carbon Dioxide (22-30) mmol/L Anion Gap mmol/L BUN (9-20) mg/dL Creatinine (0.66-1.25) mg/dL Est GFR (CKD-EPI)AfAm (>60 ml/min/1.73 sqM) Est GFR (CKD-EPI)NonAf (>60 ml/min/1.73 sqM) Glucose (74-99) mg/dL Calcium (8.4-10.2) mg/dL Total Bilirubin (0.2-1.3) mg/dL AST (17-59) U/L ALT (4-49) U/L Alkaline Phosphatase (38-126) U/L Troponin I <0.012 (0.000-0.034) ng/mL Total Protein (6.3-8.2) g/dL Albumin (3.5-5.0) g/dL 03/02/23 Range/Units 12:50 WBC (3.8-10.6) k/uL RBC (4.30-5.90) m/uL Hgb (13.0-17.5) gm/dL Hct (39.0-53.0) % MCV (80.0-100.0) fL MCH (25.0-35.0) pg MCHC (31.0-37.0) g/dL RDW (11.5-15.5) % Plt Count (150-450) k/uL MPV Neutrophils % % Lymphocytes % % Monocytes % % Eosinophils % % Basophils % % Neutrophils # (1.3-7.7) k/uL Lymphocytes # (1.0-4.8) k/uL Monocytes # (0-1.0) k/uL Eosinophils # (0-0.7) k/uL Basophils # (0-0.2) k/uL PT (9.0-12.0) sec INR (<1.2) APTT (22.0-30.0) sec Sodium 137 (137-145) mmol/L Potassium 4.3 (3.5-5.1) mmol/L Chloride 98 (98-107) mmol/L Carbon Dioxide 27 (22-30) mmol/L Anion Gap 12 mmol/L BUN 15 (9-20) mg/dL Creatinine 0.86 (0.66-1.25) mg/dL Est GFR (CKD-EPI)AfAm >90 (>60 ml/min/1.73 sqM) Est GFR (CKD-EPI)NonAf 86 (>60 ml/min/1.73 sqM) Glucose 226 H (74-99) mg/dL Calcium 9.4 (8.4-10.2) mg/dL Total Bilirubin 0.8 (0.2-1.3) mg/dL AST 48 (17-59) U/L ALT 46 (4-49) U/L Alkaline Phosphatase 55 (38-126) U/L Troponin I (0.000-0.034) ng/mL Total Protein 7.2 (6.3-8.2) g/dL Albumin 4.5 (3.5-5.0) g/dL Disposition Clinical Impression: Cerebrovascular accident (CVA) Disposition: ADMITTED IP TO THIS [facility] Condition: Stable Is patient prescribed a controlled substance at d/c from ED?: No Referrals: None,Stated [Primary Care Provider] - 1-2 days Time of Disposition: 14:27
[2023-03-02 12:11] LABS: Basophils % (A) 0 %; Eosinophils # (A) 0.3 k/uL (0-0.7); Eosinophils % (A) 3 %; HCT 49.5 % (39.0-53.0); HGB 16.2 gm/dL (13.0-17.5); Lymphocytes # (A) 1.2 k/uL (1.0-4.8); Lymphocytes % (A) 15 %; MCH 30.9 pg (25.0-35.0); MCHC 32.7 g/dL (31.0-37.0); MCV 94.5 fL (80.0-100.0); Mean Platelet Volume 7.3; Monocytes # (A) 0.4 k/uL (0-1.0); Monocytes % (A) 5 %; Neutrophils # (A) 5.9 k/uL (1.3-7.7); Neutrophils % (A) 76 %; Platelet Count 151 k/uL (150-450); RBC 5.24 m/uL (4.30-5.90); RDW 12.8 % (11.5-15.5); WBC 7.9 k/uL (3.8-10.6)
--- NOTE | 2023-03-02 12:29 | CT ---
EXAMINATION TYPE: CT brain wo con DATE OF EXAM: 03/02/2023 COMPARISON: None HISTORY: right side wekaness ans slurred speech x1 week CT DLP: 1127.4 mGycm Automated exposure control for dose reduction was used. FINDINGS: Moderate generalized degenerative change with low attenuation in the white matter. There is calcifica tions near the third ventricle. No acute hemorrhage or mass effect. Orbits are symmetric. Sinuses are clear. Calvarium intact. Craniocervical junction maintained. Low at tenuation involving the basal ganglia bilaterally suspicious for remote lacunar infarct. IMPRESSION: DEGENERATIVE AND NONSPECIFIC WHITE MATTER CHANGES MOST TYPICAL OF REMOTE ISCHEMIA. NO EVIDENCE OF ACU TE HEMORRHAGE OR MASS EFFECT.
[2023-03-02] MEDS ORDERED: ASPIRIN 325 MG TAB PO STA (12:44)
[2023-03-02 13:18] LABS: Partial Thromboplastin Time 22.1 sec (22.0-30.0); Prothrombin Time 10.2 sec (9.0-12.0)
[2023-03-02 13:23] LABS: ALT 46 U/L (4-49); AST 48 U/L (17-59); African American GFR (CKD) >90 (>60 ml/min/1.73 sqM); Albumin 4.5 g/dL (3.5-5.0); Alkaline Phosphatase 55 U/L (38-126); Anion Gap 12 mmol/L; Blood Urea Nitrogen 15 mg/dL (9-20); Calcium 9.4 mg/dL (8.4-10.2); Carbon Dioxide 27 mmol/L (22-30); Chloride 98 mmol/L (98-107); Glucose 226 mg/dL (74-99); Non-African American GFR(CKD) 86 (>60 ml/min/1.73 sqM); Potassium 4.3 mmol/L (3.5-5.1); Sodium 137 mmol/L (137-145); Total Bilirubin 0.8 mg/dL (0.2-1.3); Total Protein 7.2 g/dL (6.3-8.2)
--- NOTE | 2023-03-02 13:35 | XR ---
EXAMINATION TYPE: XR chest 2V DATE OF EXAM: 03/02/2023 COMPARISON: 12/08/2015 TECHNIQUE: PA and lateral views submitted. HISTORY: Right facial droop FINDINGS: No pleural effusion or pneumothorax. Heart size normal and no overt failure. Osseous structures demon strate hypertrophic and degenerative changes of the spine. Limited inspiration with arthropathy of th e shoulders and postsurgical changes. Subsegmental consolidation left lung base. IMPRESSION: 1. Left lower lobe infiltrate.
[2023-03-02] MEDS ORDERED: AZITHROMYCIN 500 MG in SODIUM CHLORIDE 0.9% 250 ML IVPB STA (14:19)
[2023-03-02 15:32] VITALS: BP 156/68; PULSE 87; RESP 18; TEMP 98.2
--- NOTE | 2023-03-02 15:51 | P.PN ---
Progress Note - Text Progress Note Date: 03/02/23 Patient left AMA prior to being seen.
[2023-03-03] MEDS ORDERED: ASPIRIN 325 MG TAB PO SCH (09:00)
--- NOTE | 2023-03-03 12:52 | CA ---
Transthoracic Echo Report Name: Chandu Nguyen Age: 72 Gender: M : 1950 Exam Date: 03/02/2023 14:37 Exam Location: [place] [facility] Ht (in): 66 Wt (lb): 280 Ordering Physician: Joby Hernandes MD Attending/Referring Phys: [employer] Structure Assembler Jose Puga Procedure CPT: Indications: Thrombus Cardiac Hx: TVAR Technical Quality: Very technically difficult study Contrast 1: Lumason Total Dose (mL): 8 Contrast 2: Total Dose (mL): MEASUREMENTS (Male / Female) Normal Values 2D ECHO LV Diastolic Volume MOD BP 78.8 cm??? 67 - 155 / 56 - 104 cm??? LV Systolic Volume MOD BP 25.1 cm??? 22 - 58 / 19 - 49 cm??? LV Ejection Fraction MOD BP 68.1 % >= 55 % LV Stroke Volume MOD BP 53.7 cm??? LV Diastolic Volume MOD 4C 89.0 cm??? LV Systolic Volume MOD 4C 18.8 cm??? LV Ejection Fraction MOD 4C 78.9 % LV Diastolic Length 4C 7.6 cm LV Systolic Length 4C 5.6 cm LV Diastolic Volume MOD 2C 69.8 cm??? LV Systolic Volume MOD 2C 29.0 cm??? LV Ejection Fraction MOD 2C 58.5 % LV Stroke Volume MOD 2C 40.8 cm??? LV Diastolic Length 2C 7.7 cm LV Systolic Length 2C 6.6 cm M-MODE Aortic Root Diameter MM 4.2 cm LA Systolic Diameter MM 7.7 cm LA Ao Ratio MM 1.8 DOPPLER AV Peak Velocity 168.9 cm/s AV Peak Gradient 11.4 mmHg MR Peak Velocity 129.3 cm/s MR Peak Gradient 6.7 mmHg TR Peak Velocity 111.1 cm/s TR Peak Gradient 4.9 mmHg PV Peak Velocity 141.3 cm/s PV Peak Gradient 8.0 mmHg FINDINGS Left Ventricle Left ventricular ejection fraction is estimated at 55%. Moderate concentric left ventricular hypertrophy. Abnormal left ventricular diastolic filling pattern. Normal basal systolic function. Right Ventricle Right ventricle not well visualized. Right Atrium Right atrium not well visualized. Left Atrium Left atrium not well visualized. Mitral Valve Mitral valve thickened. Mild mitral regurgitation. Aortic Valve Aortic valve not well visualized. TVAR Tricuspid Valve Tricuspid valve not well visualized. Pulmonic Valve Pulmonic valve not well visualized. Pericardium No pleural effusion. No pericardial effusion. Aorta Aortic root and proximal ascending aorta not well visualized. CONCLUSIONS Left ventricular ejection fraction 55% Moderate increased left ventricular wall thickness Mild mitral regurgitation Bioprosthetic aortic valve not well identified however no significant aortic regurgitation and normal gradients across the valve. No pericardial effusion Previewed by: Dr. Santiago Tomlin DO (Electronically Signed) Final Date: 03 Mar 2023 12:51
== END 2023-03-02 15:20 | disposition left against medical advice (07) | DRG 66 ==
LOC: EC 11:18 → 3SCARD 14:24
PROVIDERS: ADMIT Student in an Organized Health Care Education/Training Program; ATTEND Student in an Organized Health Care Education/Training Program
DX: I63.9 Cerebral infarction, unspecified (principal); R29.810 Facial weakness; R47.81 Slurred speech; F43.10 Post-traumatic stress disorder, unspecified; E78.5 Hyperlipidemia, unspecified; E11.9 Type 2 diabetes mellitus without complications; Z87.891 Personal history of nicotine dependence; Z79.4 Long term (current) use of insulin; Z79.82 Long term (current) use of aspirin; Z79.84 Long term (current) use of oral hypoglycemic drugs; Z88.8 Allergy status to other drugs, medicaments and biological substances
CPT/HCPCS: 36415; 70450; 71046; 80053; 84484; 85025; 85610; 85730; 93005; 93306; 99285

== ENCOUNTER → 2023-06-02 | Outpatient (CLI) | payer OTHER ==
--- NOTE | 2023-06-02 20:22 | CTL ---
EXAMINATION TYPE: CT Low Dose Lung DATE OF EXAM ORDERED: 06/02/2023 HISTORY: Personal history nicotine dependence. Lung cancer screening CT DLP: 160.[address] CTDI: 4.3 mGy Automated exposure control for dose reduction was used. SCREENING VISIT: Initial COMPARISON: None TECHNIQUE: Low dose computed tomography scan was performed through the chest at 1 mm thick sections a nd reconstructed images in the coronal plane at [address] DIAGNOSTIC QUALITY: Satisfactory FINDINGS: LUNG NODULES: None. LUNGS: COPD: Severity: None Fibrosis: Severity: None Lymph nodes: None Other findings: Mild right lower lobe infiltrate, likely atelectasis is present. RIGHT PLEURAL SPACE: Effusion: None Calcification: None Thickening: None Pneumothorax: None LEFT PLEURAL SPACE: Effusion: None Calcification: None Thickening: None Pneumothorax: None HEART: Heart Size: Normal Coronary calcification: Mild Pericardial effusion: None OTHER FINDINGS: Upper abdomen: Normal Bony thorax: Normal Supraclavicular region: Normal Other: Ascending thoracic aorta at the level the main pulmonary artery measures 3.0 cm. The main pul monary artery at the bifurcation measures 3.6 cm. Correlate for pulmonary hypertension IMPRESSION: 1. Negative CT for suspicious changes to suggest neoplasm. FOLLOW UP CT CHEST RECOMMENDATION: Low-dose CT chest one year CT LUNG RAD: Lung-Rad 1 Negative
== END | disposition home or self-care (01) ==
LOC: RADCTMAIN 12:24
DX: Z12.2 Encounter for screening for malignant neoplasm of respiratory organs (principal); F17.210 Nicotine dependence, cigarettes, uncomplicated
CPT/HCPCS: 71271

== ENCOUNTER → 2023-06-03 | Outpatient (CLI) | payer OTHER ==
[2023-06-03 13:29] LABS: African American GFR (CKD) >90 (>60 ml/min/1.73 sqM); Blood Urea Nitrogen 16 mg/dL (9-20); Non-African American GFR(CKD) 86 (>60 ml/min/1.73 sqM)
--- NOTE | 2023-06-06 02:59 | CT ---
EXAMINATION TYPE: CT angio neck DATE OF EXAM: 06/03/2023 COMPARISON: None HISTORY: 72-year-old male I 6 7.9, cerebrovascular disease TECHNIQUE: Contiguous axial scanning of the neck performed with IV Contrast, patient injected with 65 mL of Isovue 370. Coronal/sagittal MIP reconstructions performed. 3-D reconstructions generated on a dedicated independent workstation. CT DLP: 574.50 mGycm Automated exposure control for dose reduction was used. FINDINGS: Ectatic upper descending thoracic aorta measuring up to 3.7 cm. Median sternotomy wires are present. Mild atherosclerotic arch calcifications. The right vertebral artery is dominant. Otherwise, both vertebral arteries are patent throughout the course. The right common carotid artery is patent. There is retropharyngeal course of the bilateral carotid b ifurcations. On the right, there is mild, less than 20% narrowing at the carotid bulb by NASCET criteria. Remainde r of the right ICA is patent. The left common carotid artery is patent. At this chronic calcification at the left carotid bifurcati on contributes to mild, less than 15% narrowing at the carotid bulb. Left ICA otherwise patent. Visualized upper lungs shows mild to moderate emphysema. There is variable circumferential narrowing of the cervical mucosal space especially at the junction of the nasopharynx and oropharynx, axial image 99 and then also in the region of the supraglottic air way, axial and 63. IMPRESSION: 1. RETROPHARYNGEAL COURSE OF THE BILATERAL CAROTID BIFURCATIONS. 2. THERE IS MILD ATHEROSCLEROTIC CHANGE BILATERALLY WITH LESS THAN 20% PROXIMAL RIGHT ICA STENOSIS AN D LESS THAN 15% PROXIMAL LEFT ICA STENOSIS. 3. DOMINANT RIGHT VERTEBRAL ARTERY. 4. POSSIBLE CIRCUMFERENTIAL SOFT TISSUE NARROWING ALONG A COUPLE LEVELS OF THE CERVICAL MUCOSAL SPACE . ONE AREA AT THE JUNCTION OF THE NASOPHARYNX AND OROPHARYNX AND A SECOND AT THE SUPRAGLOTTIC AIRWAY. RECOMMEND DIRECT VISUALIZATION TO EXCLUDE ANY MUCOSAL LESION. 5. COPD WITH MILD TO MODERATE EMPHYSEMA IN THE UPPER LUNGS.
== END | disposition home or self-care (01) ==
LOC: RADCTMAIN 05-25 10:19
DX: J43.9 Emphysema, unspecified (principal); I67.9 Cerebrovascular disease, unspecified; I70.203 Unspecified atherosclerosis of native arteries of extremities, bilateral legs
CPT/HCPCS: 82565; 84520; 70498; 36415; Q9967

== ENCOUNTER → 2024-07-17 | Outpatient (CLI) | payer OTHER ==
--- NOTE | 2024-07-17 16:28 | CTL ---
EXAMINATION TYPE: CT Low Dose Lung DATE OF EXAM ORDERED: 07/17/2024 HISTORY: . Low Dose CT Lung Screening CT DLP: 99.[address] CTDI: 2.6 mGy IV CONTRAST USED: None. SCREENING VISIT: 2 low lung below the metaphysis. Thank you for COMPARISON: 06/02/2023 TECHNIQUE: Low dose computed tomography scan was performed through the chest at 1 millimeter thick se ctions and reconstructed images in the coronal plane at [address] DIAGNOSTIC QUALITY: Satisfactory FINDINGS: LUNG NODULES: Not presentLeft lung: no nodules identified.Right lung: no nodules identified. LUNGS: COPD: Severity: None Fibrosis: Severity:None Lymph nodes: None Other findings: None RIGHT PLEURAL SPACE: Effusion: None Calcification: None Thickening: None Pneumothorax: None LEFT PLEURAL SPACE: Effusion: None Calcification: None Thickening: None Pneumothorax: None HEART: Heart Size: Mildly enlarged Coronary calcification: Mild Pericardial effusion: None OTHER FINDINGS: Upper abdomen: No significant abnormality Bony thorax: Degenerative changes Supraclavicular region: No significant abnormalityOther: No significant abnormalityI IMPRESSION: No pulmonary nodularity seen greater than [address] CHEST RECOMMENDATION: Follow-up screening in one year CT LUNG RAD: LUNG RAD CATEGORY 1 negative [facility], , 07/17/2024 4:26 PM
== END | disposition home or self-care (01) ==
LOC: RADCTMAIN 15:35
PROVIDERS: ATTEND Registered Nurse Medical-Surgical
DX: Z12.2 Encounter for screening for malignant neoplasm of respiratory organs
CPT/HCPCS: 71271